=== PATIENT | female | born 1950 | race Caucasian/White ===

== ENCOUNTER → 2020-02-15 13:25 | Outpatient (CLI) | payer MEDICARE, SELFPAY ==
--- NOTE | 2020-02-15 | DI.RAD.S_ITS ---
PROCEDURE: FL JOINT INJECTION LARGE RT INDICATIONS: Other specific arthropathies COMPARISON: None. TECHNIQUE: The indications, alternatives, benefits, risks, and complications of the procedure were explained to the patient. Written informed consent was obtained and placed in the chart. The patient was placed in an appropriate position on the fluoroscopy table, and a site was chosen for percutaneous access under fluoroscopic guidance. The site was prepped and draped in a sterile fashion. Local anesthetic was administered using a 1% lidocaine solution. A hypodermic or spinal needle was then used to access the symptomatic joint. Intra-articular location of the needle tip was confirmed by injecting a small amount of contrast, followed by steroid administration. The needle was then withdrawn, and a bandage applied to the puncture site. FINDINGS: Joint injected: Right hip Medications injected: 6 mL of 40 mg/mL Kenalog and 0.5% Ropivacaine mixture. Patient's pain before injection: 10 out of 10. Patient's pain after injection: 5 out of 10. Complications: None. IMPRESSION: Successful fluoroscopically guided administration of steroid and anaesthetic solution into the right hip joint. Dictated by: Garland Hurst M.D. on 02/15/2020 at 14:38 Approved by: Garland Hurst M.D. on 02/15/2020 at 14:39
== END ==
PROVIDERS: PCP Physician Assistant; Referring Provider Orthopaedic Surgery; Visit Provider Orthopaedic Surgery
DX: M12.851 Other specific arthropathies, not elsewhere classified, right hip (principal)
CPT/HCPCS: 20610; 77002

== ENCOUNTER → 2020-03-28 12:58 | Outpatient (CLI) | payer MEDICARE, SELFPAY ==
[2020-03-28 13:09] LABS: Bacteria Urine None Seen; RBC Urine None Seen (0-5/HPF)
[2020-03-28 13:42] LABS: Add Manual Diff / Slide Review NO; Basophils Absolute Auto 100 /uL (0-100); Basophils Percent Auto 1.1 % (0-2); Eosinophils Absolute Auto 100 /uL (0-450); Eosinophils Percent Auto 0.8 % (2-4); Hematocrit 41.6 % (36-46); Hemoglobin 13.8 g/dL (12.0-16.0); Lymphocytes Absolute Auto 2200 /uL (1100-4500); Mean Corpuscular HGB Conc 33.3 % (30-36); Mean Corpuscular Hemoglobin 32.4 PG (26-34); Mean Corpuscular Volume 97.3 fL (80-100); Monocytes Absolute Auto 600 /uL (0-900); Monocytes Percent Auto 6.7 % (3-14); Neutrophils Absolute Auto 6200 /uL (1500-7000); Neutrophils Percent Auto 67.4 % (50-75); Platelet Count 313 X10^3/uL (150-400); Red Blood Cell Count 4.27 X10^6/uL (4.0-5.2); Red Cell Distribution Width 13.3 % (11.6-14.8); White Blood Cell Count 9.2 X10^3/uL (4.5-11.0)
[2020-03-28 14:02] LABS: Appearance Urine UA CLEAR; Bilirubin Urine UA NEGATIVE (NEGATIVE); Color Urine UA YELLOW; Glucose Urine UA NEGATIVE (Negative); Ketones Urine UA TRACE (NEGATIVE); Leukocyte Esterase Urine UA TRACE (NEGATIVE); Nitrite Urine UA NEGATIVE (Negative); Occult Blood Urine UA NEGATIVE (Negative); Protein Urine UA NEGATIVE (Negative); Urobilinogen Urine UA 0.2 E.U./dL (0.2)
[2020-03-28 14:03] LABS: Hemoglobin A1C% w Est Avg Glu 6.4 % (4.0-6.0)
[2020-03-28 14:06] LABS: pH Urine UA 5.5 (4.5-8.0)
[2020-03-28 14:43] LABS: BUN Creatinine Ratio 21.3 (6-22); Blood Urea Nitrogen 16 mg/dL (7-17); Calcium 9.9 mg/dL (8.4-10.2); Carbon Dioxide 34 mmol/L (22-32); Chloride 101 mmol/L (98-107); Estimated Glomerular Filt Rate > 60.0 mL/min (>60); Glucose 97 mg/dL (80-110); HEMOLYSIS < 15 (0-50); Potassium 4.3 mmol/L (3.4-5.1); Sodium 141 mmol/L (137-145)
[2020-03-28 14:45] LABS: Squamous Epithelial Cell Urine 5-10 /HPF (0-5/HPF); WBC Urine 5-10/HPF (0-5/HPF)
[2020-03-28 14:46] LABS: Culture Indicated Urine Cult Not Indicated
== END ==
PROVIDERS: PCP Physician Assistant; Referring Provider Orthopaedic Surgery; Visit Provider Orthopaedic Surgery
DX: Z01.818 Encounter for other preprocedural examination; Z01.812 Encounter for preprocedural laboratory examination; R73.9 Hyperglycemia, unspecified; N39.0 Urinary tract infection, site not specified
CPT/HCPCS: 36415; 80048; 81001; 83036; 85025; 93005; 93010

== ENCOUNTER → 2020-06-04 10:27 | Outpatient (CLI) | payer MEDICARE, SELFPAY ==
[2020-06-04 12:30] LABS: COVID19 -Nasal RAPID Negative (Negative)
== END ==
PROVIDERS: PCP Physician Assistant; Visit Provider Physician Assistant
DX: Z20.822 Contact with and (suspected) exposure to COVID-19 (principal)
CPT/HCPCS: 87635; C9803

== ENCOUNTER 2020-06-08 08:26 | Inpatient (IN) | payer MEDICARE, SELFPAY ==
[2020-06-07] VITALS (19 sets, daily range): BP systolic 95–136; BP diastolic 42–78; PULSE 53–115; RESP 12–24; TEMP 36.4–36.9; O2SAT 85–97; BMI 23.9
--- NOTE | 2020-06-07 | DI.RAD.S_ITS ---
PROCEDURE: XR HIP W PEL IF DONE RT 2V INDICATIONS: POST OP RIGHT HIP TECHNIQUE: AP pelvis and lateral view of the right hip acquired. COMPARISON: [facility], EMILY, XR HIP W PEL IF DONE RT 2V, 06/07/2020, 12:33. FINDINGS: Bones: Patient is status post right hip arthroplasty, with hardware components in expected positions. The hip joint appears congruent. The visualized bony structures appear intact. Soft tissues: Overlying postoperative changes are noted. No suspicious soft tissue densities. IMPRESSION: Expected immediate postoperative appearance of right hip arthroplasty. Dictated by: Andrei VEGA Interpreted: Veena Thomas MD on 06/07/2020 at 16:46 Approved by: Veena Thomas M.D. on 06/07/2020 at 16:58
--- NOTE | 2020-06-07 | DI.RAD.S_ITS ---
PROCEDURE: XR HIP W PEL IF DONE RT 2V INDICATIONS: Intraoperative exam. TECHNIQUE: 2 view(s) of the hip acquired. COMPARISON: None. FINDINGS: Bones: Patient is status post right hip arthroplasty, with hardware components in expected positions. The hip joint appears congruent. The visualized bony structures appear intact. Soft tissues: Overlying postoperative changes are noted. No suspicious soft tissue densities. IMPRESSION: Right hip prosthesis in anatomic alignment. Dictated by: Trina Alcantara M.D. on 06/07/2020 at 16:09 Approved by: Trina Alcantara M.D. on 06/07/2020 at 16:10
[2020-06-07] MEDS: CELECOXIB 200 MG CAPSULE PO (09:15)
[2020-06-07] MEDS: ACETAMINOPHEN 325 MG TABLET 975 MG PO (09:15)
[2020-06-07] MEDS: VANCOMYCIN 1,000 MG/200 ML PIGGYBACK 200 MG IV (09:46)
[2020-06-07] MEDS: LACTATED RINGERS 1,000 ML 42 ML IV ×2 (09:46→13:27)
--- NOTE | 2020-06-07 10:48 | PM.PREOP ---
Pre-operative Note COVID-19 COVID-19 status: Negative Interval Note History & Physical reviewed/Exam performed by Physician: Yes Changes to H&P: No
--- NOTE | 2020-06-07 10:49 | PM.OP.1 ---
Operative Date/Time/Diagnoses Date of procedure: 06/07/20 Time of procedure: 10:58 Pre-op diagnosis: right hip OA Post-op diagnosis: same Procedure & Clinicians Procedure: right total hip arthroplasty anterior approach Same procedure as scheduled: Yes Indications: The patient has had progressively worsening right hip pain with radiographic changes consistent with arthritis. Non-operative management has failed and the patient has requested total hip replacement. The risks, benefits and alternatives to surgery were discussed with the patient prior to proceeding. Risks discussed included, but were not limited to, failure to relieve pain, leg length discrepancy, dislocation, stiffness, infection, nerve damage, deep venous thrombosis, pulmonary embolism, stroke, coma, heart attack, permanent paralysis and , as well as the potential need for eventual revision of the prosthetic. Surgeon: [facility] Clinical Marketer: Satn Moreno Anesthesia Type: General and Spinal Operative Notes Findings: Severe right hip OA, good stability Closure Type: primary Specimen(s): none sent Prosthetic devices, grafts, tissues, transplants, or devices: R3 50 cup, one 20 mm screw, size 6 standard anthology a fit, minus 3 x 32 head Estimated Blood Loss (mL): 250 Blood products transfused: none Procedure in detail: The patient was brought to the operating room. Patient was carefully positioned in the supine position. Time-out was performed and antibiotics were given. Anesthesia was induced. She was positioned in the on the table in order to allow hyperextension of the hip. The right lower extremity was prepped and draped in a standard sterile fashion. An anterior right hip incision was made 1 fingerbreadth lateral to the anterior superior iliac spine and extended distally towards the greater trochanter. Dissection was carried out through skin and subcutaneous tissues. The skin and subcutaneous tissues were carefully injected with Lidocaine with epi. Superficial hemostasis was achieved. The fascia over the tensor fascia kacy was defined and incised with a knife. Two Allis clamps were used to grasp the fascia. Tensor fascia kacy was retracted laterally. A gelpi retractor was placed. Dissection was carried out down along the neck. The circumflex vessels were carefully identified and cauterized with the Aqua Mantis. There was good visualization of the femoral neck. A Cobra was placed superior to the neck and the gluteus fibers were carefully stripped from that superior aspect of the capsule. A 2nd retractor was placed along the inferior aspect of the neck. The rectus insertion along the capsule was partially released. A 3rd retractor that was then gently placed over the rim of the acetabulum under the rectus. Capsule was carefully incised and released from the intertrochanteric line circumferentially superior to the mid sagittal line and inferiorly to the mid sagittal line until the lesser trocanter was palpable. A tag stitch was placed both in the superior and inferior limb of the capsular insertion. Along the acetabulum capsule was also released up to the mid sagittal 12:00 position. A portion of the labrum was resected. A saw was used to perform an osteotomy at the level of the intertrochanteric line and the junction of the superior femoral neck leaving approximately 1 finger breath of residual inferior neck above the lesser trochanter. A 2nd cut was made along the femoral neck at the base of the head and a napkin ring of neck was removed. Corkscrew was placed in the femoral head and the head was removed without difficulty. Retractors were then repositioned around the acetabulum. Residual labrum was resected and additional osteophytes were removed. A reamer that was 4 mm below the templated size was placed by hand in the acetabulum and it was reamed to centralize the acetabulum. It was then reamed up to 2 under the templated size and fluoroscopy was brought in to confirm the position of the reaming and depth of reaming. I reamed 1 under the anticipated size. A trial cup was placed and noted that it was appropriately sized and fluoroscopy confirmed position and depth. The component was open and inserted, fluoroscopic imaging was used to confirm that the cup had been adequately seated and was well positioned. It was carefully checked and further tamped down. It was further impacted and stabilized with a screw. Neutral poly trial liner was placed. The cup was tested and noted to be stable. Attention was then directed to the femur. The femur was gently hyperextended additional capsular release was performed as needed in order to allow adequate visualization of the proximal femur with elevation of the femur. Patient was placed in a hyperextended slightly adducted position with maximum external rotation. Box osteotome was used to check for any residual neck as well as sclerotic bone along the trochanter. Russell pepper was placed in the femur. Additional broaching was performed. Canal finder was used to determine the alignment of the canal and position. Size 1 broach was placed. The canal was then appropriately broached up to the templated size as long as there was adequate stability of the broach and serial advancement of the broach without excessive impingement. Specific attention was directed at avoiding varus attempting to direct the distal aspect of the broach more anteriorly and avoiding excessive anteversion. Trial reduction showed acceptable range of motion, good stability, no posterior impingement, anglican of leg length and appropriate lateral shuck. I also hyperflexed the hip and checked that there was no impingement anteriorly and there was good stability with flexion, adduction and internal rotation. Marcaine and Exparel were injected.. The stem was placed without difficulty. Repeat trial reduction and x-ray showed acceptable overall position, length, and no evidence of the femoral fracture. The cup was specifically checked for posterior impingement. Final head was placed. Wound was meticulously irrigated with normal saline. The hip was reduced and additional Exparel and Marcaine were injected. The capsule was closed with interrupted nonabsorbable sutures. The fascia of the tensor was closed with interrupted and running Vicryl. No drain was placed. Any tensor fascia kacy muscle that appeared to be contused or injured which was a minimal amount was carefully resected. Capsule around the tensor was injected with Exparel and Marcaine. The skin was closed with barbed stitches for the subcutaneous tissue and skin. We also used surgical glue. The wound was dressed sterilely. Brief Betadine soak was also used and was meticulously irrigated with normal saline. Patient was transferred to recovery room in satisfactory condition. Complications: none Post-operative Condition: stable Disposition: Acute Care Plan for aftercare: The patient will be maintained on a standard total hip replacement protocol with weight bearing as tolerated and anterior hip precautions. The patient will receive Aspirin and sequential compression devices for DVT prophylaxis. The patient will be discharged home when safe for the home environment.
[2020-06-07] MEDS: CEFAZOLIN 2 GM/100 ML FROZ.PIGGY IV ×2 (11:00→19:31)
--- NOTE | 2020-06-07 11:27 | SUR.OPER ---
Supine on padded [place] table with bilateral legs secured in padded positioning boots and suspended in positioning spars, operative leg in traction per surgeon. Head on one pillow. Arm on non-operative side secured on padded armboard <90 degrees abduction. Arm on operative side padded and resting across chest then secured with tape over sheet. Padded perineal post in place per surgeon.
[2020-06-07] MEDS: BUPIVACAINE 0.5% W/ EPI (PF) 30 ML VIAL INJ (11:35)
[2020-06-07] MEDS: BUPIVACAINE LIPOSOME 266 MG/20 ML VIAL INJ (11:35)
[2020-06-07] MEDS: TRANEXAMIC ACID 1,000 MG VIAL 1000 MG INJ ×2 (11:37→13:30)
[2020-06-07] MEDS: SODIUM CHLORIDE IRRIG SOLUTION 250 ML, POVIDONE-IODINE SPONGE STICKS 1 APPLIC IRR (11:40)
[2020-06-07] MEDS: OXYCODONE IR 5 MG TABLET PO ×3 (14:43→19:36)
[2020-06-07] MEDS: fentaNYL 100 MCG/2 ML INJ IV ×3 (14:46→14:56)
[2020-06-07] MEDS: ACETAMINOPHEN 325 MG TABLET 650 MG PO ×2 (16:39→21:12)
[2020-06-07] MEDS: LACTATED RINGERS 1,000 ML 125 ML IV (16:43)
[2020-06-07] MEDS: DOCUSATE 100 MG CAPSULE PO (21:11)
[2020-06-07] MEDS: ASPIRIN EC 81 MG TABLET PO (21:12)
[2020-06-07] MEDS: BUTALB/APAP/CAFFEINE 50/325/40 TABLET 1 EACH PO (21:46)
[2020-06-07] MEDS: HYDROMORPHONE 0.5 MG INJ IV (21:46)
--- NOTE | 2020-06-07 22:21 | PC.NURSE ---
Admit/Evening Shift Note- Patient arrived to room via bed from PACu at 1545. Patient alert and oriented and able to make needs known to staff. Admit questiohns done, medications reviewed, physical assessment done, and skin check completed. Patient oriented to bed and bed controls, room, bathroom, lights, phone, menu, and call pedro/tv remote. Safety measures in place. Patient agrees to call for assistance. bed alarm activated. Call pedro and phone within reach. will continue to monitor.
[2020-06-07] MEDS: OXYCODONE IR 10 MG TABLET PO (23:19)
[2020-06-08] VITALS (9 sets, daily range): BP systolic 117–140; BP diastolic 53–72; PULSE 52–78; RESP 16–18; TEMP 36.5–37.1; O2SAT 93–100
[2020-06-08] MEDS: LACTATED RINGERS 1,000 ML 125 ML IV (01:40)
[2020-06-08] MEDS: CEFAZOLIN 2 GM/100 ML FROZ.PIGGY IV (03:22)
[2020-06-08] MEDS: OXYCODONE IR 10 MG TABLET PO ×6 (03:22→22:11)
[2020-06-08 06:18] LABS: Hematocrit 32.9 % (36-46); Hemoglobin 10.9 g/dL (12.0-16.0)
--- NOTE | 2020-06-08 07:14 | PM.PNPO.1 ---
Subjective Subjective Date Patient Seen: 06/08/20 Time Patient Seen: 07:14 Interval history: Patient's pain is moderate to severe. Denies fever or chills. No nausea or vomiting. Patient's daughter is home to assist her however works part-time. Patient states her daughter is working today but will have the following 3 days off work to assist her. Exam Vital Signs (past 8 hours): - 06/07/20 23:40 06/08/20 05:00 Temperature 98.3 F 97.9 F Pulse Rate 69 64 Respiratory Rate 17 16 Blood Pressure 115/68 117/64 Pulse Oximetry 96 96 Oxygen Delivery Method Nasal Cannula Oxygen Flow Rate 4 Narrative Exam Narrative: 62-year-old female resting comfortably in bed in no apparent distress. Right hip dressing is clean, dry and intact. Motor functions intact bilateral lower extremities. Sensation grossly intact to light touch bilateral lower extremities. Const General: cooperative Orientation: alert and oriented x3 Resp Effort & Inspection: normal respiratory effort Objective Labs Result Diagrams: 06/08/20 05:48 Labs: Laboratory Results - last 24 hr 06/08/20 05:48 Hgb 10.9 L Hct 32.9 L PFSH Medical History Cataract Chicken pox Chronic headache COPD (chronic obstructive pulmonary disease) (~2017) Headache (~2008) Measles Mumps Osteoarthritis of right hip Oxygen dependent Stroke (~2015) Surgical History Anesthesia Cataract extraction status of right eye H/O: section (~1985) History of neck surgery (~1988) Family History Father Diabetes mellitus Mother Cancer Brother AIDS Social History household members: children Smoking Status: Current every day smoker alcohol intake: former Assessment & Plan Post-op Postoperative Procedures: Procedures Operation Date: 06/07/20 10:45 Actual Procedures Side Surgeon p Total Hip Arthroplasty/Anterior Approach Right Therese Quinn MD Patient progressing as expected. Mobilize with physical therapy. Anterior hip precautions. Weightbearing as tolerated. Aspirin b.i.d. patient has limited assistance at home today likely discharge home tomorrow.
[2020-06-08] MEDS: ACETAMINOPHEN 325 MG TABLET 650 MG PO ×3 (08:20→20:45)
[2020-06-08] MEDS: ASPIRIN EC 81 MG TABLET PO ×2 (08:22→20:45)
[2020-06-08] MEDS: DOCUSATE 100 MG CAPSULE PO ×2 (08:22→20:46)
--- NOTE | 2020-06-08 10:02 | PT.IIE ---
Current Diagnoses Other chronic pain (06/07/20) Chronic obstructive pulmonary disease, unspecified (06/07/20) Headache, unspecified (06/07/20) Surgery Performed Operation Date: 06/07/20 10:45 Actual Procedures p Total Hip Arthroplasty/Anterior Approach(Right) - Therese Quinn MD Surgical History (Last Reviewed 06/08/20 @ 07:16 by Stan Moreno PA-C) Anesthesia Cataract extraction status of right eye H/O: section (~1985) History of neck surgery (~1988) Medical History (Last Reviewed 06/08/20 @ 07:16 by Stan Moreno PA-C) Cataract Chicken pox Chronic headache COPD (chronic obstructive pulmonary disease) (~2017) Headache (~2008) Measles Mumps Osteoarthritis of right hip Oxygen dependent Stroke (~2015) Physical Therapy Inpatient Evaluation/Re-Eval M1 PT/OT-IP Prior Functional Status Start: 06/08/20 11:21 Freq: NEEDED Status: Active Protocol: Document 06/08/20 10:02 AB (Rec: 06/08/20 11:36 AB [email or web address]) Medical Review Prior Functional Status Medical History Reviewed Yes Communication able to make needs known Mobility and Gait pt stated that she is independent with all mobilities and ambulation without AD but uses a FWW for outdoor mobility; uses O2 on and off at home Social History Household Members children Living Arrangements House Number of Floors (Floors) One Floor Number of Stairs To Enter/Railing? 5 steps B rails to enter Home Environment Standard Height Toilet,Tub/ Shower Home Equipment Front Wheel Walker,Bedside Commode,Hand Held Shower,Grab Bars In Shower M2 PT-IP Current Condition Start: 06/08/20 11:21 Freq: NEEDED Status: Active Protocol: Document 06/08/20 10:02 AB (Rec: 06/08/20 11:36 AB [email or web address]) Physical Therapy Current Condition Current Condition Evaluation Date 06/08/20 Treatment Diagnosis s/p R JANINE anterior approach; difficulty in walking Onset Date 06/07/20 Precautions Anterior Hip Precautions No Hip Extension,No Hip External Rotation Weight Bearing Status Weight Bearing Status Weight Bear as Tolerated Allowed Weight Bearing Amount (enter % RLE WBAT or #) (%) M3 PT-IP Subjective Start: 06/08/20 11:21 Freq: NEEDED Status: Active Protocol: Document 06/08/20 10:02 AB (Rec: 06/08/20 11:36 [id number]) Subjective Physical Therapy Visit Type Type Initial Evaluation Visit Start Time 10:02 Visit Stop Time 10:37 Total Visit Minutes 35 Number of MORTGAGE CONSULTANT Visits 0 Physical Therapy Visit Comments Patient Comments stated that she needs a muscle relaxant for her spasms but agreed to try PT Therapy Pain Assessment Pain When Pain Assessed At Rest Pain Present Pain Present Pain Reported Location r hip Intensity 6 Description Spasm Pain Management Techniques Distraction,Modification of Treatment,Re-positioning, Timing of Activity with Medications M4 PT-IP Mobility and Gait Start: 06/08/20 11:21 Freq: NEEDED Status: Active Protocol: Document 06/08/20 10:02 AB (Rec: 06/08/20 11:36 [id number]) PT-Bed Mobility Assessment Supine to Sit Supine to Sit Maximum Assistance,1 Person Assistance,Bedrails Sit to Supine Sit to Supine Maximum Assistance,1 Person Assistance PT-Transfer Assessment Sit to and From Stand Sit to and from Stand Moderate Assistance,1 Person Assistance,Use of Upper Extremities Equipment Transfer Assistive Device Gait Belt,Front Wheeled Walker Orthotic/Prosthetic Devices or Brace: No Transfers Transfer Destination Bedside Commode Transfer Technique Stand Step Pivot Transfer Ability Level of Assist Moderate Assistance,1 Person Assistance,Use of Upper Extremities Comments Mobility Comments educated on R hip anterior precautions. completed heel slides prior to mobility. pt c/o pain even to light tough on R thigh/hip area. completed supine to sit max A and max cues. used bed rail to assist. pt was able to sit on EOB CGA. pt requested to use the bedside commode. refused to ambulate. completed sit to stand mod A and completed step transfer to bedside commode mod A and cues using FWW. pt was able to complete hygiene care SBA. completed sit to stand from bedside commode mod A and step transfer to the bed using fWW mod A. instructed to take side steps towards HOB using FWW mod A. pt completed sit to supine max A and cues. required max A for postioning in bed. call light and table placed within reach. Gait Assessment Gait Gait Assistance Required: Moderate Assistance Distance (Feet) 2 Able to Maintain Weight Bearing Status Yes During Gait Assistive Devices Assistive Device Gait Belt,Front Wheeled Walker Orthotic/Prosthetic Devices or Brace: No Gait Deviations General Gait Pattern Antalgic,Decreased Stride Length,Decreased Feet Clearance Factors Limiting Gait Function Factors Limiting Gait Function Decreased Activity Tolerance, Decreased Strength,Difficulty Following Directions,Limited Range of Motion,Pain,Poor Balance,Poor Safety Awareness, Respiratory Distress Comments Gait Comments side stepping towards [facility] PT-Balance Assessment Sitting Balance and Reactions Static Sitting Balance Ability Good Dynamic Sitting Balance Ability Fair Standing Balance and Reactions Static Standing Balance Ability Fair Dynamic Standing Balance Ability Poor Device Used FWW M5 PT-IP Objective Assessments Start: 06/08/20 11:21 Freq: NEEDED Status: Active Protocol: Document 06/08/20 10:02 AB (Rec: 06/08/20 11:36 AB [email or web address]) Orientation Orientation/Cognition Level of Alertness Alert Orientation Name Safety Awareness Decreased Safety Awareness Memory Description Short Term Impaired Gross Range of Motion Lower Extremity ROM Assessment Within Functional Limits Strength Lower Extremity Strength Assessment Right Impaired Hip 3-/5 Knee 3+/5 Comments Strength Comments pain limiting RLE Sensation Assessment Sensation Gross Sensation WNL Muscle Tone Muscle Tone WNL Yes M6 PT-IP Treatment Start: 06/08/20 11:21 Freq: NEEDED Status: Active Protocol: Document 06/08/20 10:02 AB (Rec: 06/08/20 11:36 AB [email or web address]) Physical Therapy Treatment Exercises Exercises Heel Slides Education Education Provided Precautions,Weight Bearing Status,Post-Op Packet,Safety M7 PT-IP Assessment and Plan Start: 06/08/20 11:21 Freq: NEEDED Status: Active Protocol: Document 06/08/20 10:02 AB (Rec: 06/08/20 11:36 AB [email or web address]) PT Summary Assessment and Plan Potential Rehabilitation Potential Fair Status of Condition at Evaluation Evolving Summary Impairments Pain,ROM,Strength,Balance, Coordination,Sensation,Tone, Cognition,Bed Mobility, Transfers,Gait,Activity Tolerance Assessment Summary pt requiring mod to max A with mobility. pt plans to go home and stated that her daughter can assist her. caregiver training will be conducted when appropriate as well as stair climbing training. will continue to assess progress. pt stated that she still has to set up outpt PT. at this time, pt may require HHPT. Goals Bed Mobility Goal Standby Assistance Transfer Goal Standby Assistance,Front Wheeled Walker Gait Goal Standby Assistance,Front Wheel Walker Gait Distance 100 Other Goals improve ambualtion using fWW 150 ft mod I up/down 5 steps B rails SBA Days to Meet Goals 5 Frequency of Treatment Frequency Of Treatment Twice a Day Treatment Plan Physical Therapy Treatment Plan Bed Mobility Training,Transfer Training,Gait Training, Therapeutic Exercise,Balance Retraining,Post Op Education, Discharge Planning,Hot or Cold Pack,Neuromuscular Re-ed, Coordination Retraining,Manual Therapy Other Recommendations and Next Treatment ambulation Focus Recommendations To Nursing Amount of Assist Needed 1 Person Assist Discharge Recommendations PT Discharge Recommendations Home with 05/11 Assist Available,Home Health Transportation Needs at Discharge Private Vehicle,Wheelchair/ Cabulance
--- NOTE | 2020-06-08 10:49 | CM.DANOTE ---
Addendum entered by Alexa Quinn 06/08/20 11:02: Per patient's request, provided patient with community resources for Meals on Wheels and Senior resource guide for her area. [facility] Original Note: DCP/Assessment: Reviewed chart. Patient is a 70yr old female admitted to I.. for elective right JANINE performed on 06-07-[address] Quinn. PCP listed is Cande Christie. Primary payor is 1)[employer]. Met with patient this AM explained CM/SW role. Patient reports that she has been having a lot of pain this AM. She believes pain is attributed to muscle spasm. Therapy evaluation currently pending. Patient plans to d/c home when medically stable. Patient reports that she has all needed DME and plans to arrange outpatient therapy once she gets home. Patient reports that her daughter/Nazia will be available in the residence to assist upon discharge. Patient reports daughter will also be taking her to/from outpatient appointments while she is unable to drive. P: Anticipate home when medically stable. CM team to continue to follow. DANA Stahl Discharge Planning/Care Management CM Discharge Assessment Start: 06/08/20 10:45 Freq: Status: Active Protocol: Document 06/08/20 10:45 DELIA (Rec: 06/08/20 10:49 DELIA [id number]) Discharge Planning Assessment Assigned Workers Compensation Analyst DANA Stahl Contact Information Nazia Greenwood(daughter) ph# [phone] Advance Directives? No History Provided By Patient,Medical Record Prior Living Arrangements House Household Members children Type of transporation used prior to Drives own vehicle admit Independent with ADL's Yes Is patient alert and oriented? Yes Caregiver for Another No Community Services used prior to Oxygen Therapy admission: Comment Patient on 2 liters of 02 at baseline. DME Already Rented / Owned FWW / Walker,Cane,Bedside Commode Patient/Family Preference OP PT Therapy Comment Patient has referral for outpatient therapy. She hopes to arrange once she discharges home. Comment Patient having muscle spasms at time of visit. Patient hopes to d/c home tomorrow . Therapy evaluation currently pending. Discharge Plan Home Transportation Arrangement Family to provide transport. Whiteboard Updated in Patient Room with Yes name and ext. # of Workers Compensation Analyst Review Status In Process Next Review Type Continued Stay Review Pre-Anesthesia Assessment Start: 05/27/20 16:48 Freq: Status: Complete Protocol: Document 05/30/20 09:39 MICHAELPatrick (Rec: 05/27/20 16:55 [facility] [id number]) Pre-Anesthesia Assessment Preferred Name wanda Patient Information Reviewed Via Chart Review,Phone Assessment Assessment Completed With Patient Diagnostic Results BMP/CMP,CBC,EKG,Urinalysis, Other Comment A1c Primary Care Provider Marina Burns Seen Specialist in Last 12 Months Yes Specialist Seen Emergency,Orthopedist Primary Language Icelandic Preferred Language Icelandic Machine Room Operator Required No Height 170.18 cm Hearing Ability Normal Visual Assist None Dentition Type Teeth, Natural Present,Teeth, Missing Barriers to Learning None Other Aids No Hx Anesthesia Reactions No Hx Family Anesthesia Reaction No Hx Malignant Hyperthermia No Hx Blood Transfusions No Hx Blood Transfusion Reaction No Anesthesia Review Requested No Control Tower Operator No alcohol intake former Smoking Status Current every day smoker Tobacco type cigarettes Smoking packs per day 0.5 Substance Use Type does not use Pain Present Pain Reported Comment Right Hip Musculoskeletal Symptoms Abnormal Gait,Difficulty Walking,Joint Pain,Joint Swelling,Limited Range of Motion History of Falling (Recent or History of No ) Patient is completely paralyzed or No completely immobile Ambulatory Aid Crutches/cane/walker Prosthesis or Orthotic Device Front Wheel Walker Gait/Transferring Normal/bedrest/immobile, Impaired Mental Status Oriented to own ability Is patient on oxygen? Yes: 2 liters 05/11 Does patient have HORVATH/SOB Yes Hx Sleep Apnea No Currently Taking a Beta Eli No Can You Climb a Flight of Stairs Without No SOB Hx Chest Pain No Hx SOB No Hx Syncope or Dizziness No Anti-Coagulant Therapy No Has a Insurance Follow Up Rep No Cardiac Testing No Hx Pacemaker/ICD No Pacemaker Rep Required? No Diet Type At Home Other dysphagia No: Soft diet, missing a lot of teeth Gastrointestinal Symptoms Diarrhea,Reflux Bladder Pattern Frequency,Nocturia Urinary Catheter Present No Hx Urinary Self Catheterization No Diabetes No HgbA1C 6.4 Date 03/28/20 Patient No Lactating No Hx Drug Resistant Organism No Presence of External or Internal Medical Yes: R IOL Devices Have you had any close contact with No someone diagnosed with COVID-19? Are you experiencing any of these Shortness of breath,Diarrhea symptoms? Evaluation/Screening for possible COVID- Yes 19 infection completed? Comment Diarrhea and SOB are at her baseline level Marital Status Lives With children Prior Living Arrangements House Number of Floors (Floors) Two Floors Number of Stairs To Enter/Railing? 5 steps into house Does the Patient Have Assistance After Yes Surgery Patient Discharge Plan Description Home Health Comment Lives with daughter and grandkids Feels Safe in Current Environment Yes Been Physically Hurt or Threatened By a No Person in Current Environment Do you have thoughts of harming yourself None or others? Are you currently considering suicide? No Do you have a plan to hurt yourself or No Plan others? Do You Have Any Spiritual Beliefs That No May Affect Your HC Choices? Do You Have Any Cultural Practices That No May Affect Your HC Choices? Who Can We Speak to About Patient's Care Family & Friends Identifying Code for Release of Patient Declined Information Health Care Proxy/Next of Kin Daughter - Nazia Greenwood Health Care Proxy Emergency Contact Name Daughter - Nazia Greenwood Emergency Contact Advance Directives? No Power of Coal Trimmer Machine Operator No PAC Instructions Assistance for 24 hours post- op,Do not shave/clip surgical site,Durable medical equipment ,Medications to take/avoid, Nasal antibiotic,No ETOH/ petroleum product on skin DOS, NPO,Post-op transportation,Pre -op antibiotic,Pre-surgical wash,Sensory aids,Sturdy shoes /comfortable clothes,Do not bring valuables and remove jewelry Comment Suggest that she notify her PCP that she cannot afford inhaler; suggested Additional comment that they might be able to assist
--- NOTE | 2020-06-08 14:33 | DI.RAD.S_ITS ---
PROCEDURE: XR HIP W PEL IF DONE RT 2V INDICATIONS: right hip pain TECHNIQUE: AP pelvis and lateral view of the right hip acquired. COMPARISON: [facility], EMILY, XR HIP W PEL IF DONE RT 2V, 06/07/2020, 14:13. FINDINGS: Bones: Patient is status post right hip arthroplasty, with hardware components in expected positions. The hip joint appears congruent. The visualized bony structures appear intact. Soft tissues: No suspicious soft tissue densities. IMPRESSION: Stable and anatomic right hip alignment. No gross hardware complication. No fracture or dislocation. Dictated by: Milan Arevalo M.D. on 06/08/2020 at 15:22 Approved by: Milan Arevalo M.D. on 06/08/2020 at 15:22
--- NOTE | 2020-06-08 14:38 | PT-IP ANOTE ---
pt refused PT. stated that she still did not have any muscle relaxant and does not want to do PT. nurse stated that they are still awaiting for doctor's order for the muscle relaxant.
--- NOTE | 2020-06-08 14:39 | PC.NURSE ---
Pt up to bsc to void with 1 person assist. Pt requesting x-rays of hip due to concerns with pain. Spoke with JONEL Becerril who ordered 3V xray.
[2020-06-08] MEDS: hydrOXYzine pamoate 25 MG CAPSULE PO (14:44)
--- NOTE | 2020-06-08 15:53 | PT-IP ANOTE ---
checked on pt again 1550. pt took vistaril at 1444 and percolone at 1536. pt still refused PT. stated that the medications has not kicked in yet and does not want to do PT.
[2020-06-08] MEDS: diazePAM 5 MG TABLET 10 MG PO (20:45)
[2020-06-08] MEDS: SODIUM CHLORIDE 0.9% FLUSH 10 ML IV (20:54)
[2020-06-09] MEDS: hydrOXYzine pamoate 25 MG CAPSULE PO (01:26)
[2020-06-09] MEDS: OXYCODONE IR 10 MG TABLET PO ×4 (01:27→11:12)
--- NOTE | 2020-06-09 03:31 | PC.NURSE ---
Addendum entered by Jenn Orellana R.N. 06/09/20 04:57: Has been asleep since pain meds given earlier but now awake and states pain is back up to 8/10 so medicated with Oxycodone + Valium. Correction to previous documentation: earlier pain level was 7/10 rather than 6/10. Original Note: 0128: patient is alert and oriented but with flat affect and gruff voice. Has intermittent loose cough but is non productive. Breath sounds CTA but on oxygen at 2L/min per NC (uses at home) with sat of 93%. HRR. Denies nausea. BT present and abdomen is soft. Denies dysuria, frequency or urgency with urination. Is needing assist to reposition q2h as not moving by herself. Gets up to BSC with walker and 1 assist. CMS intact except patient unable to lift right leg off bed. Aquacel dressing to right anterior hip is CDI. States pain is 6/10 and having spasms so medicated with Oxycodone + Vistaril but declined offer of ice pack. Wearing bilateral calf SCD's. Fall risk score is high and bed alarm is activated.
[2020-06-09] MEDS: diazePAM 5 MG TABLET 10 MG PO (04:54)
[2020-06-09 05:02] VITALS: BP 130/64; PULSE 84; RESP 16; TEMP 37; O2SAT 92
--- NOTE | 2020-06-09 07:51 | P.PN_ITS ---
Subjective Subjective Date Patient Seen: 06/09/20 Time Patient Seen: 07:51 Interval history: POD #2 s/p R JANINE anterior approach with Dr. Quinn. Patient has had a lot of pain post-operatively. She had an x-ray yesterday that was WNL no fractures or abnormalities. She has mobilized with PT. Exam Vital Signs (past 8 hours): - 06/09/20 05:02 Temperature 98.6 F Pulse Rate 84 Respiratory Rate 16 Blood Pressure 130/64 Pulse Oximetry 92 Oxygen Delivery Method Nasal Cannula Oxygen Flow Rate 2 Narrative Exam Narrative: Patient sitting in bedside chair in NAD. She is alert and oriented X3. Calves are soft, compressible, and nontender bilaterally. SILT throughout BLEs. SCDs in place. DP 2+ and symmetrical. Objective Labs Result Diagrams: 06/08/20 05:48 [facility] Medical History Cataract Chicken pox Chronic headache COPD (chronic obstructive pulmonary disease) (~2017) Headache (~2008) Measles Mumps Osteoarthritis of right hip Oxygen dependent Stroke (~2015) Surgical History Anesthesia Cataract extraction status of right eye H/O: section (~1985) History of neck surgery (~1988) Family History Father Diabetes mellitus Mother Cancer Brother AIDS Social History household members: children Smoking Status: Current every day smoker alcohol intake: former Assessment & Plan Post-op Postoperative Procedures: Procedures Operation Date: 06/07/20 10:45 Actual Procedures Side Surgeon p Total Hip Arthroplasty/Anterior Approach Right Therese Mahendra Quinn MD Patient will continue to mobilize with PT. Anterior hip precautions. ASA for VTE prophylaxis. Continue current pain control. If she is mobilizing safely with adequate pain control she can DC home today with her daughter.
[2020-06-09] MEDS: ASPIRIN EC 81 MG TABLET PO (08:01)
[2020-06-09] MEDS: ACETAMINOPHEN 325 MG TABLET 650 MG PO (08:01)
[2020-06-09] MEDS: DOCUSATE 100 MG CAPSULE PO (08:01)
[2020-06-09 08:20] VITALS: BP 148/75; PULSE 85; RESP 17; TEMP 37.2; O2SAT 91
--- NOTE | 2020-06-09 10:23 | PT.IPTN ---
Current Diagnoses Other chronic pain (06/08/20) Chronic obstructive pulmonary disease, unspecified (06/08/20) Headache, unspecified (06/08/20) Surgery Performed Operation Date: 06/07/20 10:45 Actual Procedures p Total Hip Arthroplasty/Anterior Approach(Right) - Therese Quinn MD Physical Therapy Treatment Note M2 PT-IP Current Condition Start: 06/08/20 11:21 Freq: NEEDED Status: Active Protocol: Document 06/08/20 10:02 AB (Rec: 06/08/20 11:36 AB [id number]) Physical Therapy Current Condition Current Condition Evaluation Date 06/08/20 Treatment Diagnosis s/p R JANINE anterior approach; difficulty in walking Onset Date 06/07/20 Precautions Anterior Hip Precautions No Hip Extension,No Hip External Rotation Weight Bearing Status Weight Bearing Status Weight Bear as Tolerated Allowed Weight Bearing Amount (enter % RLE WBAT or #) (%) M3 PT-IP Subjective Start: 06/08/20 11:21 Freq: NEEDED Status: Active Protocol: Document 06/09/20 10:23 AW (Rec: 06/09/20 11:19 AW [id number]) Subjective Physical Therapy Visit Type Type Treatment Note Visit Start Time 09:56 Visit Stop Time 10:23 Total Visit Minutes 27 Number of SAW SHARPENER Visits 0 Physical Therapy Visit Comments Patient Comments Pt requires some encouragement but is ultimately willing to participate with PT Therapy Pain Assessment Pain When Pain Assessed At Rest Pain Present Pain Present Pain Reported Location r hip Intensity 6 Scale Used 8/10 with mobility Description Spasm Pain Management Techniques Distraction,Modification of Treatment,Re-positioning, Timing of Activity with Medications M4 PT-IP Mobility and Gait Start: 06/08/20 11:21 Freq: NEEDED Status: Active Protocol: Document 06/09/20 10:23 AW (Rec: 06/09/20 11:19 AW [id number]) PT-Bed Mobility Assessment Supine to Sit Supine to Sit Minimal Assistance,1 Person Assistance,Bedrails Sit to Supine Sit to Supine Minimal Assistance,1 Person Assistance Scooting Scooting to Edge of Bed Standby Assistance Scooting Up and Down in Bed Standby Assistance PT-Transfer Assessment Sit to and From Stand Sit to and from Stand Contact Guard Assistance, Minimal Assistance,1 Person Assistance,Use of Upper Extremities Equipment Transfer Assistive Device Gait Belt,Front Wheeled Walker Orthotic/Prosthetic Devices or Brace: No Transfers Transfer Destination Bed,Bedside Commode Transfer Technique Stand Step Pivot Transfer Ability Level of Assist Contact Guard Assistance,1 Person Assistance,Use of Upper Extremities Comments Mobility Comments Pt was able to recall all hip precautions. With HOB flat, she completed supine to sit min A x 1 and sat EOB without c/o increased pain. She stood from the bed in lowest position min A x 1 and ambulated around the foot of the bed and then to the BSC for a total of 25 feet. She transferred to the commode CGA and then stood CGA to complete pericare SBA. She then ambulated to the bed and transferred to supine min A x 1 for elevation of her operative leg. Pt was left with call light and all needs in reach. Gait Assessment Gait Gait Assistance Required: Contact Guard Assist Distance (Feet) 25 Able to Maintain Weight Bearing Status Yes During Gait Assistive Devices Assistive Device Gait Belt,Front Wheeled Walker Orthotic/Prosthetic Devices or Brace: No Gait Deviations General Gait Pattern Antalgic,Decreased Stride Length,Decreased Feet Clearance Factors Limiting Gait Function Factors Limiting Gait Function Decreased Activity Tolerance, Decreased Strength,Difficulty Following Directions,Limited Range of Motion,Pain,Poor Balance,Poor Safety Awareness, Respiratory Distress Comments Gait Comments Pt ambulated in the room with decreased WB RLE but only required CGA with FWW. Stair Climbing Assessment Comments Stair Climbing Comments Not assessed. Pt agrees to complete stair training at PM session with daughter present. PT-Balance Assessment Sitting Balance and Reactions Static Sitting Balance Ability Good Dynamic Sitting Balance Ability Good Standing Balance and Reactions Static Standing Balance Ability Good Dynamic Standing Balance Ability Fair Device Used FWW M5 PT-IP Objective Assessments Start: 06/08/20 11:21 Freq: NEEDED Status: Active Protocol: Document 06/08/20 10:02 AB (Rec: 06/08/20 11:36 AB [id number]) Orientation Orientation/Cognition Level of Alertness Alert Orientation Name Safety Awareness Decreased Safety Awareness Memory Description Short Term Impaired Gross Range of Motion Lower Extremity ROM Assessment Within Functional Limits Strength Lower Extremity Strength Assessment Right Impaired Hip 3-/5 Knee 3+/5 Comments Strength Comments pain limiting RLE Sensation Assessment Sensation Gross Sensation WNL Muscle Tone Muscle Tone WNL Yes M6 PT-IP Treatment Start: 06/08/20 11:21 Freq: NEEDED Status: Active Protocol: Document 06/09/20 10:23 AW (Rec: 06/09/20 11:19 AW [id number]) Physical Therapy Treatment Exercises Exercises Ankle Pumps,Gluteal Sets,Quad Sets,Heel Slides Education Education Provided Precautions,Weight Bearing Status,Safety M7 PT-IP Assessment and Plan Start: 06/08/20 11:21 Freq: NEEDED Status: Active Protocol: Document 06/09/20 10:23 AW (Rec: 06/09/20 11:19 AW [id number]) PT Summary Assessment and Plan Potential Rehabilitation Potential Fair Summary Impairments Pain,ROM,Strength,Balance, Coordination,Sensation,Tone, Cognition,Bed Mobility, Transfers,Gait,Activity Tolerance Progress Towards Goals Slow Progress due to Pain Assessment Summary Jolanta required CGA to min assist during treatment this AM. She agrees to have her daughter present for PM treatment to include caregiver training and stair training. Depending on progress, pt may be safe to discharge home with assist and PT once medically stable. Goals Bed Mobility Goal Standby Assistance Transfer Goal Standby Assistance,Front Wheeled Walker Gait Goal Standby Assistance,Front Wheel Walker Gait Distance 100 Other Goals improve ambualtion using fWW 150 ft mod I up/down 5 steps B rails SBA Days to Meet Goals 5 Frequency of Treatment Frequency Of Treatment Twice a Day Treatment Plan Physical Therapy Treatment Plan Bed Mobility Training,Transfer Training,Gait Training, Therapeutic Exercise,Balance Retraining,Post Op Education, Discharge Planning,Hot or Cold Pack,Neuromuscular Re-ed, Coordination Retraining,Manual Therapy Other Recommendations and Next Treatment ambulation, CGT, stairs Focus Recommendations To Nursing Amount of Assist Needed 1 Person Assist Discharge Recommendations PT Discharge Recommendations Home with Assistance,Home Health Transportation Needs at Discharge Private Vehicle
[2020-06-09 12:20] VITALS: BP 123/73; PULSE 86; RESP 18; TEMP 36.6; O2SAT 94
--- NOTE | 2020-06-09 14:01 | PC.NURSE ---
Pt is dressed and ready for discharge home with Daughter Nasima. HL has been removed. Aquacell is cdi. Went over d/c instructions with Pt and Daughter - discussed d/c meds, time of last dose, reviewed stroke education, s/s of infection, following anterior hip precautions, no driving while taking narcotics, drink plenty of fluids to prevent constipation or dehydration and follow up. Pt and Daughter deny further questions. Pt is having caregiver training for stairs and then Pt will be discharged out via w/c by MACHINE ASSEMBLER SUPERVISOR to pov with daughter and all belongings.
--- NOTE | 2020-06-09 14:33 | PT.IPTN ---
Current Diagnoses Other chronic pain (06/08/20) Chronic obstructive pulmonary disease, unspecified (06/08/20) Headache, unspecified (06/08/20) Surgery Performed Operation Date: 06/07/20 10:45 Actual Procedures p Total Hip Arthroplasty/Anterior Approach(Right) - Therese Quinn MD Physical Therapy Treatment Note M2 PT-IP Current Condition Start: 06/08/20 11:21 Freq: NEEDED Status: Discharge Protocol: Document 06/08/20 10:02 AB (Rec: 06/08/20 11:36 AB [email or web address]) Physical Therapy Current Condition Current Condition Evaluation Date 06/08/20 Treatment Diagnosis s/p R JANINE anterior approach; difficulty in walking Onset Date 06/07/20 Precautions Anterior Hip Precautions No Hip Extension,No Hip External Rotation Weight Bearing Status Weight Bearing Status Weight Bear as Tolerated Allowed Weight Bearing Amount (enter % RLE WBAT or #) (%) M3 PT-IP Subjective Start: 06/08/20 11:21 Freq: NEEDED Status: Discharge Protocol: Document 06/09/20 14:19 AW (Rec: 06/09/20 14:33 AW [id number]) Subjective Physical Therapy Visit Type Type Treatment Note Visit Start Time 13:56 Visit Stop Time 14:19 Total Visit Minutes 23 Notes Pt's daughter, Nasima, was present for caregiver training Number of MASON FOREMAN/SUPERINTENDANT Visits 0 Physical Therapy Visit Comments Patient Comments Pt is dressed and ready to go. Therapy Pain Assessment Pain When Pain Assessed During Mobility Pain Present Pain Present Pain Reported Location r hip Scale Used not quantified M4 PT-IP Mobility and Gait Start: 06/08/20 11:21 Freq: NEEDED Status: Discharge Protocol: Document 06/09/20 14:19 AW (Rec: 06/09/20 14:33 AW [id number]) PT-Transfer Assessment Sit to and From Stand Sit to and from Stand Contact Guard Assistance, Minimal Assistance Equipment Transfer Assistive Device Gait Belt,Front Wheeled Walker Orthotic/Prosthetic Devices or Brace: No Transfers Transfer Destination Wheelchair,Car Transfer Technique Stand Step Pivot Transfer Ability Level of Assist Minimal Assistance Comments Mobility Comments Pt was dressed and sitting EOB as PT arrived. RN had finished with discharge instructions. Pt instructed daughter, Nasima, on use of the gait belt. Pt stood from the bed min A x 1 and transferred to the wheelchair with min assist. She was propelled to the stairs where she participated in stair training with her daughter. She then transferred back to the wheelchair CGA and was pushed to the ED entrance where she transferred to the passenger seat of her daughter's car with cues and min assist using FWW. Pt was left with family in POV. Stair Climbing Assessment Evaluation Level of Assist On Stairs Contact Guard Assistance, Minimal Assistance Devices Stair Climbing Assistive Devices Left Railing,Right Railing Technique/Endurance Stair Climbing Direction Ascend and Descend Stair Climbing Technique Step Over Step Number of Steps Climbed 3 Stair Climbing Set # Repetitions (reps) 1 Comments Stair Climbing Comments PT educated pt and her daughter on stair climbing technique. Pt used B rails as she will do at home to climb stairs with CGA to min assist. Pt was able to sequence stairs without verbal cues. Pt and her daughter were comfortable with technique and felt reassured that they would be able to manage at home. M5 PT-IP Objective Assessments Start: 06/08/20 11:21 Freq: NEEDED Status: Discharge Protocol: Document 06/08/20 10:02 AB (Rec: 06/08/20 11:36 AB [id number]) Orientation Orientation/Cognition Level of Alertness Alert Orientation Name Safety Awareness Decreased Safety Awareness Memory Description Short Term Impaired Gross Range of Motion Lower Extremity ROM Assessment Within Functional Limits Strength Lower Extremity Strength Assessment Right Impaired Hip 3-/5 Knee 3+/5 Comments Strength Comments pain limiting RLE Sensation Assessment Sensation Gross Sensation WNL Muscle Tone Muscle Tone WNL Yes M6 PT-IP Treatment Start: 06/08/20 11:21 Freq: NEEDED Status: Discharge Protocol: Document 06/09/20 14:19 AW (Rec: 06/09/20 14:33 AW [id number]) Physical Therapy Treatment Education Education Provided Precautions,Weight Bearing Status,Safety M7 PT-IP Assessment and Plan Start: 06/08/20 11:21 Freq: NEEDED Status: Discharge Protocol: Document 06/09/20 14:19 AW (Rec: 06/09/20 14:33 AW [id number]) PT Summary Assessment and Plan Potential Rehabilitation Potential Fair Summary Impairments Pain,ROM,Strength,Balance, Coordination,Sensation,Tone, Cognition,Bed Mobility, Transfers,Gait,Activity Tolerance Progress Towards Goals Slow Progress due to Pain Assessment Summary Jolanta required CGA to min assist for mobility with main limitation being reported muscle spasm in right anterolateral thigh. Pt's daughter will be able to provide appropriate level of assist at home. Pt is safe for discharge home with assist but would benefit from HH vs outpatient PT. Goals Bed Mobility Goal Standby Assistance Transfer Goal Standby Assistance,Front Wheeled Walker Gait Goal Standby Assistance,Front Wheel Walker Gait Distance 100 Other Goals improve ambualtion using fWW 150 ft mod I up/down 5 steps B rails SBA Days to Meet Goals 5 Frequency of Treatment Frequency Of Treatment Twice a Day Treatment Plan Physical Therapy Treatment Plan Bed Mobility Training,Transfer Training,Gait Training, Therapeutic Exercise,Balance Retraining,Post Op Education, Discharge Planning,Hot or Cold Pack,Neuromuscular Re-ed, Coordination Retraining,Manual Therapy Recommendations To Nursing Amount of Assist Needed 1 Person Assist Discharge Recommendations PT Discharge Recommendations Home with Assistance,Home Health,Outpatient PT Transportation Needs at Discharge Private Vehicle
== END 2020-06-09 14:10 | disposition home or self-care (01) | DRG 470 ==
LOC: OR 14:48 → AC 14:48
PROVIDERS: Admitting Provider Orthopaedic Surgery; PCP Family Medicine; Referring Provider Family Medicine; Visit Provider Orthopaedic Surgery
PROC: 0SR90JA Replacement of Right Hip Joint with Synthetic Substitute, Uncemented, Open Approach (ICD-10-PCS; CPT 27130; principal; 2020-06-07 10:45)
DX: M16.11 Unilateral primary osteoarthritis, right hip (principal); J44.9 Chronic obstructive pulmonary disease, unspecified; F17.210 Nicotine dependence, cigarettes, uncomplicated; E78.5 Hyperlipidemia, unspecified; Z99.81 Dependence on supplemental oxygen
CPT/HCPCS: 36415; 73502; 76000; 85014; 85018; 97116; 97162; 97530; 99406; C1776; C9290; J0690; J1100; J1170; J2405; J2704; J3010

== ENCOUNTER → 2020-08-31 10:44 | Outpatient (CLI) | payer MEDICARE, SELFPAY ==
[2020-06-07 17:02] VITALS: BMI 23.9
[2020-08-31 11:27] LABS: Add Manual Diff / Slide Review NO; Basophils Absolute Auto 100 /uL (0-100); Basophils Percent Auto 0.8 % (0-2); Eosinophils Absolute Auto 100 /uL (0-450); Eosinophils Percent Auto 1.6 % (2-4); Hematocrit 42.8 % (36-46); Hemoglobin 14.1 g/dL (12.0-16.0); Lymphocytes Absolute Auto 1600 /uL (1100-4500); Lymphocytes Percent Auto 19.8 % (25-40); Mean Corpuscular Hemoglobin 31.6 PG (26-34); Mean Corpuscular Volume 95.7 fL (80-100); Monocytes Absolute Auto 500 /uL (0-900); Monocytes Percent Auto 5.9 % (3-14); Neutrophils Absolute Auto 5800 /uL (1500-7000); Neutrophils Percent Auto 71.9 % (50-75); Platelet Count 282 X10^3/uL (150-400); Red Blood Cell Count 4.47 X10^6/uL (4.0-5.2); Red Cell Distribution Width 12.8 % (11.6-14.8); White Blood Cell Count 8.1 X10^3/uL (4.5-11.0)
[2020-08-31 11:43] LABS: Alanine Aminotransferase 14 IU/L (<35); Albumin 4.6 g/dL (3.5-5.0); Albumin Globulin Ratio 1.2 (1.0-2.8); Alkaline Phosphatase 105 U/L (38-126); Aspartate Aminotransferase 20 IU/L (14-36); Bilirubin Total 0.2 mg/dL (0.2-1.3); Blood Urea Nitrogen 20 mg/dL (7-17); Calcium 9.9 mg/dL (8.4-10.2); Carbon Dioxide 30 mmol/L (22-32); Chloride 102 mmol/L (98-107); Estimated Glomerular Filt Rate > 60.0 mL/min (>60); Globulin 3.7 g/dL (1.7-4.1); Glucose 99 mg/dL (80-110); HEMOLYSIS < 15 (0-50); Potassium 3.8 mmol/L (3.4-5.1); Sodium 143 mmol/L (137-145); Total Protein 8.3 g/dL (6.3-8.2)
== END ==
PROVIDERS: PCP Family Medicine; Referring Provider Family Medicine; Visit Provider Family Medicine
DX: D64.9 Anemia, unspecified (principal); R73.03 Prediabetes; K21.9 Gastro-esophageal reflux disease without esophagitis
CPT/HCPCS: 36415; 80053; 83036; 85025

== ENCOUNTER → 2020-09-23 10:24 | Outpatient (CLI) | payer MEDICARE, SELFPAY ==
[2020-06-07 17:02] VITALS: BMI 23.9
[2020-09-23 12:22] LABS: Hemoglobin A1C% w Est Avg Glu 6.1 % (4.0-6.0)
[2020-09-23 12:26] LABS: PTT Partial Thromboplastin Tim 32 SECONDS (26.4-36.2)
[2020-09-23 13:20] LABS: Vitamin B12 334 pg/mL (239-931)
== END ==
PROVIDERS: PCP Family Medicine; Referring Provider Family Medicine; Visit Provider Family Medicine
DX: T14.8XXA Other injury of unspecified body region, initial encounter (principal); R73.03 Prediabetes; R07.89 Other chest pain
CPT/HCPCS: 36415; 82607; 83036; 85610; 85730

== ENCOUNTER → 2020-10-03 08:01 | Outpatient (CLI) | payer MEDICARE, SELFPAY ==
[2020-06-07 17:02] VITALS: BMI 23.9
[2020-10-03 12:23] LABS: COVID19 -Nasal RAPID Negative (Negative)
== END ==
PROVIDERS: PCP Family Medicine; Visit Provider Physician Assistant
DX: Z01.812 Encounter for preprocedural laboratory examination (principal); Z20.822 Contact with and (suspected) exposure to COVID-19
CPT/HCPCS: 87635; C9803

== ENCOUNTER 2020-10-04 11:13 | Day surgery (SDC) | payer MEDICARE, SELFPAY ==
[2020-06-07 17:02] VITALS: BMI 23.9
[2020-10-04] MEDS: PROPARACAINE 0.5% OPHTH SOL 2 DROPS EYE-OP (12:48)
[2020-10-04] MEDS: CATARACT EYE COMPOUND (10 DROPS/SYRINGE) 3 DROPS EYE-OP (12:49)
[2020-10-04 13:01] VITALS: BP 127/76; PULSE 77; RESP 18; TEMP 36.2; O2SAT 94; BMI 23.1
--- NOTE | 2020-10-04 13:02 | PM.PREOP ---
Pre-operative Note Interval Note History & Physical reviewed/Exam performed by Physician: Yes Changes to H&P: No
--- NOTE | 2020-10-04 13:02 | PM.OP.1 ---
Operative Date/Time/Diagnoses Pre-op diagnosis: Nuclear Cataract Left eye Post-op diagnosis: same Procedure & Clinicians Same procedure as scheduled: Yes Surgeon: Adrián Baker Anesthesia Type: MAC +/- and Sedation Operative Notes Procedure in detail: Patient brought to the operating suite. Tetracaine drops placed in the left eye. Patient was prepped and draped in sterile manner. Wire lid speculum was placed in the eye. Betadine drops were placed on the eye. This was irrigated. Lidocaine jelly was placed on the eye. A paracentesis port was created with a side-port blade. 0.1 mL 1% preservative free lidocaine was injected into the anterior chamber. There was no red reflex. Air was injected into the anterior chamber. 0.1 ml vision blue was injected below the air. The anterior chamber was deepened with viscoelastic. 2.6 mm keratome was used to create a temporal clear corneal incision. Cystotome and Utrata forceps were used to create continuous tear capsulorrhexis. Balanced salt solution was used to hydro dissect the nucleus. The miLoop was used to crack the nucleous. It was very dense. The phacoemulsification handpiece was inserted and the nucleus was removed using the stop and chop technique. The irrigation aspiration handpiece was inserted and the remaining cortex was removed. Anterior chamber was deepened with viscoelastic. An Navarrete DIB00 intraocular lens with a power of 21.0 was injected into the capsular bag. Irrigation aspiration handpiece was inserted and the remaining viscoelastic was removed. Incision was hydrated with balanced salt solution and found to be leak free with pressure with Weck-Jamilah sponges. 0.1 mL Vigamox injected anterior chamber. 0.3 mL Kenalog 10 mg was injected subconjunctivally. Lid speculum was removed. The patient left the operating room in excellent condition. Complications: none Post-operative Condition: stable Disposition: same day surgery
[2020-10-04] MEDS: LIDOCAINE 2% (GLYDO) 6 ML GEL TOP (13:26)
[2020-10-04] MEDS: CHONDROIDTIN/SOD HYALURONATE 1.05 ML SYRINGE INTRAOCULA (13:26)
[2020-10-04] MEDS: PHENYLEPHRINE/LIDOCAINE VIAL (OR) 0.2 ML EYE-OP (13:27)
[2020-10-04] MEDS: MOXIFLOXACIN INJ 4 MG/0.8 ML VIAL 0.5 MG EYE-OP (13:27)
[2020-10-04] MEDS: TETRACAINE 0.5% OPHTH DROPS 4 ML 2 DROPS EYE-OP (13:27)
[2020-10-04] MEDS: TRIAMCINOLONE 50 MG/5 ML VIAL INJ (13:27)
[2020-10-04] MEDS: BALANCED SALT IRRIG SOLN NO.2 500 ML, EPINEPHrine 1 MG IRR (13:28)
[2020-10-04 14:03] VITALS: BP 132/83; PULSE 87; RESP 20; TEMP 36.7; O2SAT 94
--- NOTE | 2020-10-04 14:05 | SUR.PHASEII ---
Patient states that she is going to take a taxi back to hotel in [place]. Per Dr Baker, patient may take taxi home.
== END 2020-10-04 14:04 | disposition home or self-care (01) ==
PROVIDERS: PCP Family Medicine; Referring Provider Ophthalmology; Visit Provider Ophthalmology
PROC: (CPT 66984; principal; 2020-10-04 13:45)
DX: H25.12 Age-related nuclear cataract, left eye (principal); J44.9 Chronic obstructive pulmonary disease, unspecified; F17.210 Nicotine dependence, cigarettes, uncomplicated
CPT/HCPCS: 66984; J0171; J2250; J3010; J3301

== ENCOUNTER 2021-04-22 08:51 | Emergency (ER) | payer MEDICARE, SELFPAY ==
[2020-06-07 17:02] VITALS: BMI 23.9
[2021-04-22 08:58] VITALS: BP 156/70; PULSE 70; RESP 18; TEMP 36.9; O2SAT 94; BMI 22.4
--- NOTE | 2021-04-22 09:02 | DI.RAD.S_ITS ---
PROCEDURE: XR HIP W PEL IF DONE RT 2V INDICATIONS: fall with right hip pain TECHNIQUE: AP pelvis and lateral view of the right hip acquired. COMPARISON: [facility], EMILY, XR HIP W PEL IF DONE RT 2V, 06/08/2020, 14:44. FINDINGS: Bones: Patient is status post right hip arthroplasty, with hardware components in expected positions. The hip joint appears congruent. The visualized bony structures appear intact. Stable osseous excrescence along the left iliac crest. Soft tissues: Overlying postoperative changes are noted. No suspicious soft tissue densities. IMPRESSION: No acute osseous abnormality. Dictated by: Kaden Barlow D.O. on 04/22/2021 at 9:40 Approved by: aKden Barlow D.O. on 04/22/2021 at 9:41
--- NOTE | 2021-04-22 09:37 | ED.FALL ---
HPI - Fall General Chief Complaint: Fall Stated Complaint: RT ARTIIFICIAL HIP PAIN X ONE WEEK Time Seen by Provider: 04/22/21 08:58 Source: patient Mode of arrival: Ambulatory Limitations: no limitations History of Present Illness HPI Narrative: This is a 70-year-old female comes emergency department with complaint of right hip pain. Patient states about 7-10 days ago she slipped on the ice and snow and fell backwards. She states she did her neck a little bit but that that symptoms have completely resolved. She has continued to have pain particularly with weight-bearing or when she bends over. She states if she is lying flat bed or not moving her pain is well controlled. She has tried Tylenol with minimal improvement. She has had a right hip replacement in the past and was concerned she may have injured it. She contacted her primary care and they can not get her in for another couple weeks and she was encouraged to come here. She does have a history of COPD she is normally on 2 L nasal cannula. She denies any worsening symptoms or other new changes. She denies any other daily medications. She denies any drug allergies. Denies any other major surgeries. Patient denies any numbness, tingling or weakness in her extremity. She is able to move it without issue when lying or seated. She has not appreciated any weakness. Related Data Home Medications Medication Instructions Recorded Confirmed aspirin 81 mg tablet,delayed 81 mg PO DAILY tab 09/23/20 release Previous Rx's Medication Instructions Recorded acetaminophen 325 mg tablet 650 mg PO TID #20 tab 06/09/20 omeprazole 20 mg capsule,delayed 20 mg PO BID #180 cap 10/20/20 release butalbital 50 mg-acetaminophen 325 See Rx Instructions .ROUTE 01/12/21 mg-caffeine 40 mg-codeine 30 mg cap .COMPLEX #10 cap tramadol 50 mg tablet (Ultram) 50 mg PO Q6H PRN #10 tab 04/22/21 Allergies Allergy/AdvReac Type Severity Reaction Status Date / Time No Known Drug Allergies Allergy Verified 04/22/21 09:02 Review of Systems Review of Systems ROS Unobtainable: All systems reviewed & are unremarkable except as noted in HPI and below Patient History Medical History Bruising Cataract Chicken pox Chronic headache COPD (chronic obstructive pulmonary disease) (~2018) Exertional dyspnea Headache (~2008) Measles Mumps Osteoarthritis of right hip Oxygen dependent Prediabetes Stroke (~2015) Tightness in chest Surgical History Anesthesia Cataract extraction status of right eye H/O: section (~1985) History of neck surgery (~1988) Family History Father Diabetes mellitus Mother Cancer Brother AIDS Social History household members: children Smoking Status: Current every day smoker alcohol intake: former Smoking Status: Current every day smoker alcohol intake frequency: holidays/special occasions only Substance Use Type: does not use Exam Narrative Exam Narrative: GENERAL: Alert and oriented x three, female in mild distress. HEENT: Head normocephalic, atraumatic, EOMI, pupils reactive, face symmetric, moist mucous membranes, nasal cannula in place. NECK: Supple, full range of motion CARDIOVASCULAR: Regular rate and rhythm without murmurs, rubs or gallops. RESPIRATORY: Breath sounds equal bilaterally, no wheezes rales or rhonchi. ABDOMEN: Soft, nontender. Normoactive bowel sounds all 4 quadrants. No guarding or rebound, rigidity, no mass : No CVA tenderness BACK: No cervical, thoracic or lumbar vertebral point tenderness. Patient has normal range of motion. Patient has tenderness over the right SI joint and slightly over the right piriformis muscle. She does not have any other bony tenderness on exam. Negative pelvic rock. Muscle strength is 5/5 in lower extremities. Patient does not have any other bony tenderness down her right lower extremity. She has full range of motion at flexion extension, internal external rotation at the hip as well as full range of motion of the knee and ankle joint. Normal sensation throughout. 2+ dorsalis pedis. EXTREMITIES: Normal range of motion, no clubbing or edema. Neurovascularly intact NEUROLOGICAL: Cranial nerves II through XII grossly intact. Moving all extremities SKIN: Warm, dry, no petechiae, no rashes or lesions. Initial Vital Signs Initial Vital Signs: Vital Signs Temperature 98.4 F 04/22/21 08:58 Pulse Rate 70 04/22/21 08:58 Respiratory Rate 18 04/22/21 08:58 Blood Pressure 156/70 H 04/22/21 08:58 Pulse Oximetry 94 04/22/21 08:58 Course Orders Ordered: ED Orders 04/22/21 09:02 XR hip w pel if done RT 2V Stat Vital Signs Vital signs: Vital Signs - 8 hr 04/22/21 08:58 04/22/21 11:22 Temperature 98.4 F Pulse Rate 70 67 Respiratory Rate 18 18 Blood Pressure 156/70 H 155/78 H Pulse Oximetry 94 95 MDM - Fall Imaging Data Extremity x-ray #1: Radiologist's Impression: [address] [address] XRay Report Signed Patient: Melissa Nguyen MR#: [id number] : 1950 Acct:[id number] Age/Sex: 70 / F Date of Service: 04/22/21 Loc: ED Accession Number: [id number] ?? Procedure: XR hip w pel if done RT 2V Ordering Provider: Marilin Salazar D.O. PROCEDURE:? XR HIP W PEL IF DONE RT 2V ? INDICATIONS:? fall with right hip pain ? TECHNIQUE:? AP pelvis and lateral view of the right hip acquired.? ? COMPARISON:? [facility], CR, XR HIP W PEL IF DONE RT 2V, 06/08/2020, 14:44. ? FINDINGS:? ? Bones:? Patient is status post right hip arthroplasty, with hardware components in expected positions.? The hip joint appears congruent.? The visualized bony structures appear intact.? Stable osseous excrescence along the left iliac crest. ? Soft tissues:? Overlying postoperative changes are noted.? No suspicious soft tissue densities.? ? ? IMPRESSION:? ? No acute osseous abnormality. ? ? ? Dictated by: Kaden Barlow D.O. on 04/22/2021 at 9:40 ? ? Approved by: Kaden Barlow D.O. on 04/22/2021 at 9:41?? [facility] Narrative Medical decision making narrative: This is a 70-year-old female who had a fall about a week ago. She has continued to have right SI pain since then she is able to ambulate but is uncomfortable. Patient has a negative x-ray. She has been taking [id number] pain medications and given prescription for short-term for slightly stronger pain medicine. Return precautions were discussed. All questions answered. Discharge Plan Departure Patient Disposition: Home Clinical Impression: Hip pain, right Instructions: DI for Hip Pain Activity Restrictions/Additional Instructions: Follow-up with your physician if your symptoms continue. Your imaging is negative for any breaks or fractures. You may take Tylenol up to a 1000 mg every 8 hours as needed for pain. If in adequate you may take ibuprofen up to 800 mg every 8 hours. If you continue to need medication for breakthrough pain. You may take 1-2 tablets of tramadol every 6 hours as needed. This medication can make you sleepy do not drive, perform hazardous activities or make any major decisions while taking it. This medication will make you constipated please take a stool softener once to twice daily until stools are soft and regular. Prescription sent to [facility] in [place]. Please return for new numbness, tingling weakness, loss of bowel or bladder control, passing out, inability to lift or move your leg, ambulate or other new or concerning symptoms. Prescriptions: New tramadol [Ultram] 50 mg tablet 50 mg PO Q6H PRN (Reason: pain) Qty: 10 0RF No Action omeprazole 20 mg capsule,delayed release(DR/EC) 20 mg PO BID Qty: 180 2RF tghqqzbdyx-zvhivgtpqd-veb-cod 04-906-96-30 mg capsule See Rx Instructions .ROUTE .COMPLEX Qty: 10 0RF Dose Instruction: take 1 capsule by mouth once daily for migraines *MUST LAST 30 DAYS* Rx Instructions: take 1 capsule by mouth once daily for migraines *MUST LAST 30 DAYS* aspirin 81 mg tablet,delayed release (DR/EC) 81 mg PO DAILY 0RF acetaminophen 325 mg Tablet 650 mg PO TID Qty: 20 0RF Referrals: Venancio Christie MD [Primary Care Provider] -
[2021-04-22 11:22] VITALS: BP 155/78; PULSE 67; RESP 18; O2SAT 95
== END 2021-04-22 11:23 | disposition home or self-care (01) ==
PROVIDERS: Emergency Provider Emergency Medicine; PCP Family Medicine
DX: M25.551 Pain in right hip (principal); F17.200 Nicotine dependence, unspecified, uncomplicated
CPT/HCPCS: 73502; 99281; 99283

== ENCOUNTER → 2022-02-27 09:14 | Outpatient (CLI) | payer MEDICARE, SELFPAY ==
[2020-06-07 17:02] VITALS: BMI 23.9
--- NOTE | 2022-02-27 09:16 | DI.CT.S_ITS ---
PROCEDURE: CT CHEST WO CON INDICATIONS: COPD, chronic smoker TECHNIQUE: Noncontrast 5 mm thick sections acquired from the pulmonary apices to the posterior costophrenic angles. 1 mm lung window, 5 mm thick coronal and sagittal and 7 mm axial MIP reformats were then acquired. For radiation dose reduction, the following was used: automated exposure control, adjustment of mA and/or kV according to patient size. COMPARISON: [facility], CHEST 2VW, 07/05/2014, 18:35. FINDINGS: Image quality: Excellent. Lungs and pleura: No acute air space opacities. No pleural effusions or pneumothorax. Central and peripheral airways are patent and normal in caliber. COPD changes are present. Several scattered linear areas of scarring versus atelectasis are present. No bronchiectasis. Mediastinum: Heart size is normal. No pericardial effusion. No mediastinal adenopathy by size criteria. Thoracic aorta and central pulmonary arteries are normal in size. Esophagus is normal in caliber. No hiatal hernia. Bones and chest wall: No suspicious bony lesions. No vertebral body compression fractures. No axillary or supraclavicular adenopathy by size criteria. Thyroid gland is unremarkable . Abdomen: Mild patent steatosis. Otherwise, visualized upper abdominal solid organs and bowel loops appear normal in the absence of contrast. IMPRESSION: COPD changes. Dictated by: Mary Kate Yin M.D. on 02/27/2022 at 15:56 Approved by: Mary Kate Yin M.D. on 02/27/2022 at 16:04
== END ==
PROVIDERS: PCP Family Medicine; Referring Provider Family Medicine; Visit Provider Family Medicine
DX: J44.9 Chronic obstructive pulmonary disease, unspecified (principal); Z99.81 Dependence on supplemental oxygen
CPT/HCPCS: 71250

== ENCOUNTER → 2022-05-15 09:22 | Outpatient (CLI) | payer MEDICARE, SELFPAY ==
[2020-06-07 17:02] VITALS: BMI 23.9
[2022-05-15 10:18] LABS: Add Manual Diff / Slide Review NO; Basophils Absolute Auto 100 /uL (0-100); Basophils Percent Auto 0.9 % (0-2); Eosinophils Absolute Auto 0 /uL (0-450); Eosinophils Percent Auto 0.3 % (2-4); Hematocrit 39.7 % (36-46); Lymphocytes Absolute Auto 2000 /uL (1100-4500); Lymphocytes Percent Auto 13.7 % (25-40); Mean Corpuscular HGB Conc 32.6 % (30-36); Mean Corpuscular Hemoglobin 31.5 PG (26-34); Mean Corpuscular Volume 96.5 fL (80-100); Monocytes Absolute Auto 900 /uL (0-900); Monocytes Percent Auto 5.9 % (3-14); Neutrophils Absolute Auto 11500 /uL (1500-7000); Neutrophils Percent Auto 79.2 % (50-75); Platelet Count 357 X10^3/uL (150-400); Red Blood Cell Count 4.11 X10^6/uL (4.0-5.2); Red Cell Distribution Width 12.8 % (11.6-14.8); White Blood Cell Count 14.6 X10^3/uL (4.5-11.0)
[2022-05-15 10:29] LABS: Hemoglobin A1C% w Est Avg Glu 7.5 % (4.0-6.0)
[2022-05-15 10:37] LABS: Alanine Aminotransferase 24 IU/L (<35); Albumin 4.1 g/dL (3.5-5.0); Albumin Globulin Ratio 1.2 (1.0-2.8); Alkaline Phosphatase 96 U/L (38-126); Aspartate Aminotransferase 22 IU/L (14-36); BUN Creatinine Ratio 25.7 (6-22); Bilirubin Total 0.3 mg/dL (0.2-1.3); Blood Urea Nitrogen 18 mg/dL (7-17); Calcium 9.3 mg/dL (8.4-10.2); Carbon Dioxide 29 mmol/L (22-32); Chloride 99 mmol/L (98-107); Cholesterol 202 mg/dL (140-199); Estimated Glomerular Filt Rate > 60 mL/min (>60); Globulin 3.3 g/dL (1.7-4.1); Glucose 138 mg/dL (80-110); HDL Cholesterol 47 mg/dL (40-60); HEMOLYSIS < 15 (0-50); LDL Cholesterol Calculated 114 mg/dL (<100); Potassium 4.1 mmol/L (3.4-5.1); Sodium 138 mmol/L (137-145); Total Protein 7.4 g/dL (6.3-8.2); Triglycerides 207 mg/dL (35-150)
[2022-05-15 10:39] LABS: Creatinine Urine Random 67.2 mg/dL
[2022-05-15 10:45] LABS: Microalbumin Urine Random 3.5 mg/dL (0-1.6)
[2022-05-15 11:09] LABS: TSH w/ Reflex to FT4 0.69 uIU/mL (0.47-4.68)
== END ==
PROVIDERS: PCP Family Medicine; Referring Provider Family Medicine; Visit Provider Family Medicine
DX: Z00.00 Encounter for general adult medical examination without abnormal findings (principal); E11.9 Type 2 diabetes mellitus without complications; G89.29 Other chronic pain; J44.9 Chronic obstructive pulmonary disease, unspecified; R03.0 Elevated blood-pressure reading, without diagnosis of hypertension; R51.9 Headache, unspecified
CPT/HCPCS: 36415; 80053; 80061; 82043; 82570; 83036; 84443; 85025

== ENCOUNTER → 2022-09-13 09:19 | Outpatient (CLI) | payer MEDICARE, SELFPAY ==
[2020-06-07 17:02] VITALS: BMI 23.9
--- NOTE | 2022-09-13 09:23 | DI.RAD.S_ITS ---
PROCEDURE: XR ABDOMEN 3V INDICATIONS: BLOATING TECHNIQUE: One view chest and two views of the abdomen were acquired. COMPARISON: [facility], CT, CT CHEST WO CON, 02/27/2022, 9:30. FINDINGS: Surgical changes and devices: None. Chest: Lingula scars and atelectasis. Heart size is normal. No pleural effusions. No pneumoperitoneum. Abdomen: Bowel gas pattern is normal. No suspicious calcifications. Visualized solid organ contours appear normal. Bones: No suspicious bony lesions. There is right hip arthroplasty. Degenerative joint disease in left hip and bilateral sacroiliac joints. IMPRESSION: No acute abnormalities. If clinical symptoms persist, CT would be helpful. Dictated by: Trina Alcantara M.D. on 09/14/2022 at 7:41 Approved by: Trina Alcantara M.D. on 09/14/2022 at 7:42
== END ==
PROVIDERS: PCP Family Medicine; Referring Provider Internal Medicine Gastroenterology; Visit Provider Internal Medicine Gastroenterology
DX: R14.0 Abdominal distension (gaseous) (principal)
CPT/HCPCS: 74021

== ENCOUNTER → 2022-11-06 09:10 | Outpatient (CLI) | payer MEDICARE, MEDICAID, SELFPAY ==
[2020-06-07 17:02] VITALS: BMI 23.9
--- NOTE | 2022-11-06 | DI.US.S_ITS ---
PROCEDURE: US ABDOMEN COMPLETE INDICATIONS: ABDOMINAL DISTENTION TECHNIQUE: Real-time scanning was performed of the abdominal and retroperitoneal organs, with image documentation. COMPARISON: [facility], CR, XR ABDOMEN 3V, 09/13/2022, 9:26. [facility] Outside Film, CT, CT ABDOMEN PELVIS WITHOUT CONTRAST, 12/11/2018, 12:11. FINDINGS: Liver: Liver measures 16.3 cm. There is a focus of decreased echogenicity with internal echoes measuring 10 mm in the left lobe. It is unchanged compared to 2018. Hepatic steatosis is present. Gallbladder: No stones. Wall thickness is normal measuring 2 mm. Biliary ducts: Intrahepatic bile ducts are non-dilated. Extrahepatic bile duct caliber measures 10 mm. Normal is 6-7 mm or less in diameter, or 10 mm or less post-cholecystectomy. Pancreas: Visualized portions of the pancreas are sonographically normal. Spleen: Spleen is normal in size and homogeneous in echotexture. Kidneys: Kidneys are normal in size and echotexture. Right kidney measures 10.1 cm long; left kidney measures 10.2 cm long. No hydronephrosis or nephrolithiasis. Ill-defined foci of decreased echogenicity within the left kidney measuring 1.7 and 0.6 cm. These are not identified on prior exam. Aorta: Visualized aorta is normal in caliber at less than 3 cm. Iliacs: Proximal common iliac arteries are normal in caliber at less than 2.5 cm. IVC: Intrahepatic inferior vena cava is patent. Miscellaneous: No free abdominal fluid. IMPRESSION: Low-attenuation renal foci appearing most suggestive of simple cysts. Dictated by: Mary Kate Yin M.D. on 11/06/2022 at 17:00 Approved by: Mary Kate Yin M.D. on 11/06/2022 at 17:02
== END ==
PROVIDERS: PCP Family Medicine; Referring Provider Internal Medicine Gastroenterology; Visit Provider Internal Medicine Gastroenterology
DX: R14.0 Abdominal distension (gaseous) (principal)
CPT/HCPCS: 76700

== ENCOUNTER → 2023-05-21 11:46 | Outpatient (CLI) | payer MEDICARE, MEDICAID, SELFPAY ==
[2020-06-07 17:02] VITALS: BMI 23.9
[2023-05-21 12:59] LABS: Add Manual Diff / Slide Review NO; Basophils Absolute Auto 100 /uL (0-100); Basophils Percent Auto 0.5 % (0-2); Eosinophils Absolute Auto 100 /uL (0-450); Eosinophils Percent Auto 1.1 % (2-4); Hematocrit 37.6 % (36-46); Hemoglobin 12.3 g/dL (12.0-16.0); Lymphocytes Absolute Auto 1700 /uL (1100-4500); Mean Corpuscular HGB Conc 32.8 % (30-36); Mean Corpuscular Hemoglobin 31.1 PG (26-34); Mean Corpuscular Volume 94.9 fL (80-100); Monocytes Absolute Auto 600 /uL (0-900); Monocytes Percent Auto 5.7 % (3-14); Neutrophils Absolute Auto 8200 /uL (1500-7000); Neutrophils Percent Auto 76.7 % (50-75); Platelet Count 345 X10^3/uL (150-400); Red Blood Cell Count 3.96 X10^6/uL (4.0-5.2); Red Cell Distribution Width 13.7 % (11.6-14.8); White Blood Cell Count 10.8 X10^3/uL (4.5-11.0)
[2023-05-21 13:21] LABS: Alanine Aminotransferase 23 IU/L (<35); Albumin 4.4 g/dL (3.5-5.0); Albumin Globulin Ratio 1.3 (1.0-2.8); Alkaline Phosphatase 68 U/L (38-126); Aspartate Aminotransferase 23 IU/L (14-36); BUN Creatinine Ratio 31.6 (6-22); Bilirubin Total 0.4 mg/dL (0.2-1.3); Blood Urea Nitrogen 25 mg/dL (7-17); Carbon Dioxide 35 mmol/L (22-32); Chloride 99 mmol/L (98-107); Cholesterol 188 mg/dL (140-199); Estimated Glomerular Filt Rate > 60 mL/min (>60); Globulin 3.4 g/dL (1.7-4.1); Glucose 127 mg/dL (80-110); HDL Cholesterol 42 mg/dL (40-60); HEMOLYSIS < 15 (0-50); LDL Cholesterol Calculated 92 mg/dL (<100); Potassium 4.2 mmol/L (3.4-5.1); Sodium 140 mmol/L (137-145); Total Protein 7.8 g/dL (6.3-8.2); Triglycerides 270 mg/dL (35-150)
[2023-05-21 13:26] LABS: Hemoglobin A1C% w Est Avg Glu 6.6 % (4.0-6.0)
[2023-05-21 18:01] LABS: Microalbumin Urine Random 5.9 mg/dL (0-1.6)
[2023-05-21 18:43] LABS: Creatinine Urine Random 68.3 mg/dL; Microalbumi Creatinin Ratio Ur 86.3 ug/mg CR (<30)
[2023-05-23 16:15] LABS: Hep C Virus Ab w/Reflex Quant NEGATIVE s/c (NEGATIVE)
== END ==
PROVIDERS: PCP Family Medicine; Referring Provider Family Medicine; Visit Provider Family Medicine
DX: J44.9 Chronic obstructive pulmonary disease, unspecified (principal); E11.9 Type 2 diabetes mellitus without complications; R16.0 Hepatomegaly, not elsewhere classified; K76.0 Fatty (change of) liver, not elsewhere classified; Z99.81 Dependence on supplemental oxygen
CPT/HCPCS: 36415; 80053; 80061; 82043; 82570; 83036; 85025; 86803

== ENCOUNTER → 2023-05-30 09:37 | Outpatient (CLI) | payer MEDICARE, MEDICAID, SELFPAY ==
[2020-06-07 17:02] VITALS: BMI 23.9
--- NOTE | 2023-05-30 09:38 | DI.CT.S_ITS ---
PROCEDURE: CT CHEST ABD PEL W CON INDICATIONS: abd pain, bloating, loose stools, lung cancer screening TECHNIQUE: After the administration of intravenous contrast, 5 mm thick sections acquired from the lung apices to the symphysis. 5 mm coronal and sagittal reformats were performed, with additional 7 mm MIP reformats through the lungs. For radiation dose reduction, the following was used: automated exposure control, adjustment of mA and/or kV according to patient size. COMPARISON: [facility] Outside Film, CT, CT ABDOMEN PELVIS WITHOUT CONTRAST, 12/11/2018, 12:11. [facility], CT, CT CHEST WO CON, 02/27/2022, 9:30. FINDINGS: Image quality: Excellent. CHEST: Lower Neck: No enlarged lymph nodes. Thyroid: Normal CT appearance. Axillae: No enlarged lymph nodes. Chest Wall: Chronic right flank sebaceous cyst. Lungs and Pleura: Mild to moderate emphysematous change. Minor bilateral lung base subpleural fibrotic changes. No suspicious lung nodules, masses, ground-glass opacities. Minor lingular and medial right middle lobe atelectasis. Heart: Normal size heart. Moderate coronary artery calcification. No pericardial effusion. Thoracic Vessels: Normal caliber aorta. Mild central pulmonary artery prominence. Mediastinum and Zaida: No adenopathy. Esophagus: No wall thickening. No hiatal hernia. ABDOMEN: Liver: Mild enlargement and steatosis, similar compared to the prior exam. No visible mass without IV contrast. Gallbladder: No calcifications. Biliary ducts: No biliary dilation. Pancreas: No ductal dilation. Spleen: Size is within normal limits. Adrenal Glands: No adrenal nodules. Kidneys and Ureters: Numerous nonobstructing punctate intrarenal calculi too small to measure. No hydronephrosis. No contour deformities or perinephric inflammation. No hydroureter or ureteral calcifications. Stomach and Bowel: The stomach is decompressed. The duodenal sweep is within normal limits. There is a moderate length segment of proximal jejunum, roughly 15 cm in length demonstrating circumferential wall thickening without obstruction. No adjacent inflammation or mesenteric congestion. No interloop fluid. Remainder of small bowel and colon are normal. Occasional distal colonic diverticula. Peritoneum: No abnormal intraperitoneal fluid. No free air. Ventral Wall: No significant ventral hernia. Abdominal Nodes: No retroperitoneal or mesenteric adenopathy by size criteria. Vessels: Aorta and inferior vena cava are normal in size. Mild abdominal aortic atherosclerotic calcification. PELVIS: Pelvic Organs: Present and age-appropriate. Bladder: Normal wall thickness. Moderate anterior pelvic floor prolapse with cystocele. Pelvic Nodes: No enlarged lymph nodes. Miscellaneous: No inguinal hernias are seen. Bones: No aggressive osseous abnormality. Right hip arthroplasty. IMPRESSION: Changes of pulmonary emphysema without evidence of malignancy. There is a single proximal jejunal loop demonstrating circumferential wall thickening, nonspecific and nonobstructing. This may indicate enteropathy of uncertain etiology. Continued attention on subsequent exams is recommended. Several punctate non-obstructing bilateral renal calculi. Anterior pelvic floor prolapse. Dictated by: Brittany Mathews M.D. on 05/30/2023 at 15:48 Approved by: Brittany Mathews M.D. on 05/30/2023 at 16:03
[2023-05-31 15:52] LABS: Fecal Immunochemical Test Negative (Negative)
== END ==
PROVIDERS: PCP Family Medicine; Referring Provider Family Medicine; Visit Provider Family Medicine
DX: N20.0 Calculus of kidney (principal); N81.89 Other female genital prolapse; K76.0 Fatty (change of) liver, not elsewhere classified; E11.9 Type 2 diabetes mellitus without complications; J44.9 Chronic obstructive pulmonary disease, unspecified; R10.9 Unspecified abdominal pain; Z12.11 Encounter for screening for malignant neoplasm of colon; R16.0 Hepatomegaly, not elsewhere classified; F17.200 Nicotine dependence, unspecified, uncomplicated; Z99.81 Dependence on supplemental oxygen
CPT/HCPCS: 71250; 74176; 82274